=== PATIENT | male | born 1990 | race Caucasian/White ===

== ENCOUNTER 2018-08-29 14:39 | Emergency (ER) | payer OTHER ==
[~2018-08-29] VITALS: Ht 177.8 cm; Wt 74.8 kg
[2018-08-29 14:58] LABS: URINE BILIRUBIN NEGATIVE (Negative); URINE BLOOD NEGATIVE (Negative); URINE CLARITY CLEAR; URINE COLOR YELLOW; URINE GLUCOSE-RANDOM NEGATIVE (Negative); URINE KETONES NEGATIVE (Negative); URINE LEUKOCYTES-REFLEX NEGATIVE (Negative); URINE NITRITE-REFLEX NEGATIVE (Negative); URINE PROTEIN NEGATIVE (Negative); URINE SPECIFIC GRAVITY >= 1.030 (1.005-1.030); URINE UROBILINOGEN 0.2 E.U./dl (0.2-1.0)
[2018-08-29] MEDS ORDERED: DOXYCYCLINE 10100 MG PO (14:58)
[2018-08-29 15:25] VITALS: BP 122/77
== END 2018-08-29 15:26 | disposition home or self-care (01) ==
LOC: M.ERS 14:39
PROVIDERS: Emergency Medicine Emergency Medical Services
DX: N34.2 Other urethritis (principal)